=== PATIENT | male | born 1970 | race African-American/Black ===

== ENCOUNTER 2022-07-15 06:22 | Day surgery (SDC) | payer OTHER ==
[~2022-07-15] VITALS: Ht 167.6 cm; Wt 83.9 kg
[2022-07-15] MEDS ORDERED: diphenhydrAMINE 50 MG/ML VIAL ONE (07:38)
[2022-07-15] MEDS ORDERED: fentaNYL citrate 0.05 MG/ML VIAL ONE ×2 (07:38→07:39)
[2022-07-15] MEDS ORDERED: MIDAZOLAM 5 MG/5 ML VIAL ONE (07:39)
[2022-07-15] MEDS ORDERED: MIDAZOLAM 2 MG/2 ML VIAL IVP ONE (08:35)
[2022-07-15] MEDS ORDERED: fentaNYL citrate 0.05 MG/ML VIAL IVP ONE (08:35)
[2022-07-15] MEDS ORDERED: diphenhydrAMINE 50 MG/ML VIAL IVP ONE (08:55)
== END 2022-07-15 10:15 | disposition home or self-care (01) ==
LOC: MDS 06:22 → MMU 06:23 → MDS 10:15
PROVIDERS: ATTEND Internal Medicine Gastroenterology
DX: R13.10 Dysphagia, unspecified (principal); K31.1 Adult hypertrophic pyloric stenosis; I12.0 Hypertensive chronic kidney disease with stage 5 chronic kidney disease or end stage renal disease; N18.6 End stage renal disease; E78.5 Hyperlipidemia, unspecified; Z99.2 Dependence on renal dialysis; Z79.899 Other long term (current) drug therapy; Z20.822 Contact with and (suspected) exposure to COVID-19
CPT/HCPCS: 43239; 87426; J1200; J2250; J3010